=== PATIENT | female | born 1970 | race Caucasian/White ===

== ENCOUNTER 2019-07-23 06:00 | Outpatient (RCR) | payer MEDICARE, MEDICAID, SELFPAY | END 2019-08-20 00:01 | LOC: MPT 06:00 | PROVIDERS: Family Provider Nurse Practitioner; Visit Provider Nurse Practitioner | DX: G89.29 Other chronic pain (principal); M54.5 Low back pain | CPT/HCPCS: 97110; 97161 ==

== ENCOUNTER 2019-08-21 13:44 | Outpatient (RCR) | payer MEDICARE, MEDICAID, SELFPAY | END 2019-09-20 23:59 | disposition home or self-care (01) | LOC: MPT 13:44 | PROVIDERS: Visit Provider Physician Assistant | DX: M54.5 Low back pain (principal) ==

== ENCOUNTER → 2020-07-20 09:05 | Outpatient (BNVA) | payer MEDICARE, MEDICAID, SELFPAY | PROVIDERS: Family Provider Nurse Practitioner; PCP Physician Assistant Medical; Referring Provider Physician Assistant Medical; Visit Provider Anesthesiology Pain Medicine | DX: G89.29 Other chronic pain (principal); M51.16 Intervertebral disc disorders with radiculopathy, lumbar region; M47.816 Spondylosis without myelopathy or radiculopathy, lumbar region; M54.9 Dorsalgia, unspecified; M54.2 Cervicalgia; F17.210 Nicotine dependence, cigarettes, uncomplicated; Z90.49 Acquired absence of other specified parts of digestive tract; Z79.899 Other long term (current) drug therapy | CPT/HCPCS: 99204 ==

== ENCOUNTER 2020-08-06 06:00 | Outpatient (RCR) | payer MEDICARE, MEDICAID, SELFPAY | END 2020-08-20 23:59 | disposition home or self-care (01) | LOC: MPT 06:00 | PROVIDERS: PCP Physician Assistant Medical; Referring Provider Anesthesiology Pain Medicine; Visit Provider Anesthesiology Pain Medicine | DX: M54.5 Low back pain (principal); G89.29 Other chronic pain | CPT/HCPCS: 97110; 97161 ==

== ENCOUNTER 2021-07-26 13:28 | Inpatient (IN) | payer MEDICARE, MEDICAID, SELFPAY ==
[2021-07-26 13:35] VITALS: BP 134/80; PULSE 114; RESP 18; TEMP 37.1; O2SAT 94; BMI 32.4
[2021-07-26 14:08] LABS: Basophils # 0.1 10^3/uL (0.0-0.1); Basophils % 0.9 %; Eosinophils # 0.1 10^3/uL (0.0-0.8); Hematocrit 43.1 % (37.0-47.0); Lymphocytes # 3.1 10^3/uL (0.8-4.8); Lymphocytes % 22.2 %; Mean Corpuscular HGB Conc 32.5 g/dL (30.0-36.0); Mean Corpuscular Hemoglobin 27.9 pg (28.0-34.0); Mean Corpuscular Volume 85.9 fl (81-99); Mean Platelet Volume 10.3 fL (7.4-10.4); Monocytes # 0.6 10^3/uL (0.2-0.9); Monocytes % 4.2 %; Neutrophils % 71.2 %; Nucleated Red Blood Cells % 0 %; Platelet Count 431 10^3/cmm (130-400); Red Blood Count 5.02 10^6/uL (4.1-5.3); Red Cell Distribution Width 13.5 % (12.1-15.1); White Blood Count 13.8 10^3/uL (4.0-10.0)
[2021-07-26 14:48] VITALS: BP 139/67; PULSE 129; RESP 22; TEMP 37; O2SAT 95
[2021-07-26 14:50] LABS: Anion Gap 23.4 (5-19); Blood Urea Nitrogen 19 mg/dL (6-20); Calcium 9.6 mg/dL (8.5-10.5); Carbon Dioxide 19 mmol/L (22-29); Chloride 102 mmol/L (98-107); Glomerular Filtration Rate 88.9 mL/min (90-130); Glucose 129 mg/dL (65-115); Osmolality Calculated 296 mOsm/kg (285-295); Potassium 3.4 mmol/L (3.5-5.1); Sodium 141 mmol/L (136-145)
[2021-07-26 14:53] LABS: Acetaminophen < 5.0 ug/mL (10-30); Salicylate < 0.3 mg/dL (3-10)
--- NOTE | 2021-07-26 14:54 | ED_ITS ---
HPI - General Adult General: Chief complaint: Anxiety Stated complaint: DEPRESSION/PANIC ATTACK Time Seen by Provider: 07/26/21 13:30 History of Present Illness: HPI narrative: Patient is a 51-year-old female with a history of polysubstance use presenting to the emergency room with anxiety restless leg jerking and hyperactivity after using meth. Patient tells me that she smoked meth 2 days ago and since then has not been feeling right. Patient tell me that she feels anxious. Patient also tells me that she has a history of depression and feels sad. Patient denies any active suicidal ideation or homicidal ideation. Denies any active hallucination. Onset: 2 days ago Duration:2 days Location:home Severity:moderate Review of Systems Narrative: Constitutional: No fever, no chills. HEENT: No vision changes CV: No chest pain, no palpitations PULM: no cough, no dyspnea. GI: No abdominal pain, no N/V/D. : No dysuria MSKEL: No muscle pain SKIN: No new rashes, no lesions. NEURO: No headache, no focal weakness. HEME: No visible bruises PSYCH: Agitated mood PFSH ED PFSH: Medical History (Updated 07/08/21 @ 16:24 by Sarah Lazo) Psychiatric care Family History (Updated 10/07/19 @ 08:18 by Charo Ozuna RN) Grandmother Diabetes MATERNAL Cancer BREAST Social History (Updated 07/20/20 @ 09:59 by Mary Bates LPN) Smoking and tobacco status: current every day smoker cigarettes Packs smoked per day: 0.5 [ Other cigarette details: SINCE THE AGE OF 19 ] Alcohol intake: never Lives independently: Yes History of recent travel: No Physical Exam Narrative: EXAM NARRATIVE: Head: Atraumatic Eyes: PERRL, conjunctiva without injection ENT: Mucous membrane moist NECK: Supple, ROM intact LUNGS: LCTAB, no crackles/rhonchi CV: Sinus tachycardia ABDOMEN: Soft, nontender in all quadrants EXTREMITY: Normal ROM SKIN: No rash or erythema NEURO: Awake and alert, no focal motor deficits PSYCH: Normal mood and affect Course Vital Signs: Vital signs: Vital Signs Temperature 98.6 F 07/26/21 14:48 Pulse Rate 129 H 07/26/21 14:48 Respiratory Rate 22 H 07/26/21 14:48 Blood Pressure 139/67 07/26/21 14:48 Pulse Oximetry 95 07/26/21 14:48 MDM - General Adult MDM Narrative: Medical decision making narrative: 51F presents emergency room with agitation, suicidal thoughts. On exam, patient appears to be agitated. +Tachycardia on arrival. I discussed case with Dr. Gray who agrees with admitting patient for observation given depressive symptoms and inability to care for self. Disposition: Admission Lab Data: Labs: Lab Results 07/26/21 07/26/21 14:02 14:02 WBC 13.8 10^3/uL H 10 ^3/uL (4.0-10.0) RBC 5.02 10^6/uL 10^6 /uL (4.1-5.3) Hgb 14.0 g/dL g/dL (11.5-15.3) Hct 43.1 % % (37.0-47.0) MCV 85.9 fl fl (81-99) MCH 27.9 pg L pg (28.0-34.0) MCHC 32.5 g/dL g/dL (30.0-36.0) RDW 13.5 % % (12.1-15.1) Plt Count 431 10^3/cmm H 10 ^3/cmm (130-400) MPV 10.3 fL fL (7.4-10.4) Neut % (Auto) 71.2 % % Lymph % (Auto) 22.2 % % Valley % (Auto) 4.2 % % Eos % (Auto) 1.0 % % Baso % (Auto) 0.9 % % Neut # (Auto) 9.80 10^3/uL H 10 ^3/uL (1.8-7.7) Lymph # (Auto) 3.1 10^3/uL 10^3/ uL (0.8-4.8) Valley # (Auto) 0.6 10^3/uL 10^3/ uL (0.2-0.9) Eos # (Auto) 0.1 10^3/uL 10^3/ uL (0.0-0.8) Baso # (Auto) 0.1 10^3/uL 10^3/ uL (0.0-0.1) Nucleated RBC % (a uto) 0 % % Nucleated RBCs # 0.0 /100WBC /100W BC Sodium 141 mmol/L mmol/L (136-145) Potassium 3.4 mmol/L L mmol /L (3.5-5.1) Chloride 102 mmol/L mmol/L (98-107) Carbon Dioxide 19 mmol/L L mmol/ L (22-29) Anion Gap 23.4 H (5-19) BUN 19 mg/dL mg/dL (6-20) Creatinine 0.7 mg/dL mg/dL (0.5-0.9) GFR Calculation 88.9 mL/min L mL/ min (90-130) Glucose 129 mg/dL H mg/dL (65-115) Calculated Osmolal ity 296 mOsm/kg H mOs m/kg (285-295) Calcium 9.6 mg/dL mg/dL (8.5-10.5) Salicylates < 0.3 mg/dL L mg/ dL (3-10) Acetaminophen < 5.0 ug/mL L ug/ mL (10-30) Discharge Plan Discharge Prescriptions: No Action omeprazole 20 mg capsule,delayed release(DR/EC) 20 mg PO DAILY RF: 0 fluticasone propion-salmeterol [Advair Diskus] 100-50 mcg/dose blister with device 1 puff INHALATION BID RF: 0 ibuprofen [IBU] 800 mg tablet 800 mg PO Q8H PRNRF: 0 montelukast [Singulair] 10 mg tablet 10 mg PO DAILY RF: 0 albuterol sulfate [ProAir HFA] 90 mcg/actuation HFA aerosol inhaler 2 puff INHALATION Q6H PRNRF: 0 nabumetone 500 mg tablet 1,000 mg PO BID RF: 0 fenofibrate nanocrystallized 145 mg tablet 145 mg PO DAILY RF: 0 olanzapine 5 mg tablet 0.5 mg PO .COMPLEX RF: 0 potassium chloride 10 mEq tablet extended release 10 meq PO DAILY RF: 0 cholecalciferol (vitamin D3) 1,250 mcg (50,000 unit) capsule PO RF: 0 metformin 500 mg tablet 500 mg PO BID RF: 0 Coding Level of Care Code ED Mechanic Sound Technician for Chg Jenni
[2021-07-26 16:45] LABS: Protein Urine 1+ (Negative); Specific Gravity, Urine 1.025 (1.005-1.030); Urine Appearance Cloudy (CLEAR); Urine Color Yellow (Yellow); pH Urine 5 (5-7)
[2021-07-26 16:46] LABS: Add Urine Microscopic? YES; Bilirubin Urine 1+ (Negative); Blood Urine 2+ (Negative); Glucose Urine UA Norm (Normal); Ketones Urine 1+ (Negative); Leukocyte Esterase Urine 1+ (Negative); Nitrate Urine Positive (Negative); Urobilinogen Urine 4 mg/dL (Negative)
[2021-07-26 16:47] LABS: Bacteria Urine 4+ /hpf; Mucus Urine 1+ /hpf; Transitional Epi Cells Urine 0-4 /hpf
[2021-07-26 16:48] LABS: Add Urine Culture? Yes; Amorphous Sediment Urine 2+ /hpf
[2021-07-26 16:49] LABS: Amphetamines Screen Urine Positive (Negative); Barbiturates Screen Urine Negative (Negative); Benzodiazepines Screen Urine Negative (Negative); Cocaine Screen Urine Negative (Negative); Opiate Screen Urine Negative (Negative); PCP Screen Urine Negative (Negative); THC Screen Urine Positive (Negative)
--- NOTE | 2021-07-26 16:50 | PC.NURSE ---
Report called to floor, given to DONNA Bradford. Suzette will call back when the room is clean
[2021-07-26 17:30] VITALS: BP 133/84; PULSE 102; RESP 18; TEMP 37; O2SAT 96
[2021-07-26] MEDS: nicotine 2 mg Gum BUCCAL (18:36)
--- NOTE | 2021-07-26 20:03 | PC.NURSE ---
Admission- Patient is a 51-year-old female with a history of polysubstance use presenting to the emergency room with anxiety restless leg jerking and hyperactivity after using meth. Patient tells me that she smoked meth 2 days ago and since then has not been feeling right. Patient tell me that she feels anxious. Patient also tells me that she has a history of depression and feels sad. Patient denies any active suicidal ideation or homicidal ideation. Denies any active hallucination. Upon arrival to unit has hyperactive movements but is calm and cooperative. Is tearful throughout intake. Denies current SI but does endorse being overwhelmed and just wanting to be . States that she got hooked on meth 6 months ago and realized that she needs help.
[2021-07-26] MEDS: acetaminophen 325 mg Tablet 650 MG PO (20:16)
[2021-07-26] MEDS: hyDROXYzine 25 mg Capsule 50 MG PO (20:17)
[2021-07-26] MEDS: trazodone 50 mg Tablet PO (21:26)
[2021-07-26] MEDS: OLANZapine 5 mg ODT PO (21:26)
[2021-07-26 21:41] VITALS: RESP 20
[2021-07-27 06:00] VITALS: RESP 16
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
[2021-07-27 14:00] VITALS: BP 133/84; PULSE 102; RESP 16; TEMP 37; O2SAT 96
[2021-07-27 21:20] VITALS: BP 129/80; PULSE 68; RESP 18; O2SAT 96
[2021-07-28 06:00] VITALS: PULSE 104; RESP 16; O2SAT 96
[2021-07-28] MEDS: acetaminophen 325 mg Tablet 650 MG PO (06:38)
[2021-07-28 14:00] VITALS: RESP 16
[2021-07-28] MEDS: OLANZapine 5 mg ODT PO (17:44)
[2021-07-28] MEDS: nicotine 2 mg Gum BUCCAL (17:44)
--- NOTE | 2021-07-28 19:57 | P.NPUPN_ITS ---
Subjective NPU Subjective: Interval history: Patient presents today reporting that she is feeling a little better. We discussed her continuing the medicine that she has been on and she agreed to make every attempt to meet here at this time and to plan to work with the treatment team about discharge planning. She reports that her drug use is an issue that she needs to confront and we discussed how that could be addressed in follow-up. Mental Status Exam MSE Comments: This is an obese, white female, with absent dentition, with limited grooming, and eye contact. No abnormal movements except for mild psychomotor retardation. Cooperative with exam in no acute distress. Speech was normal rate and volume. Mood described as a little better; affect seemed congruent. Thought process, organized. Thought content: she endorses paranoia, but no delusions were noted or noted. Patient denied any suicidal or homicidal ideation. Attention, concentration, and memory appear intact but were not formally tested. She is alert and oriented times three. Insight and judgment are limited, impulse control impaired. Vitals/I&O/Wt Last Vital Signs Temp 98.8 F 07/28/21 22:00 Pulse 64 07/28/21 22:00 Resp 18 07/28/21 22:00 BP 102/66 07/28/21 22:00 Pulse Ox 95 07/28/21 22:00 Data NPU : 07/26/21 14:02 07/26/21 14:02 Micro: Microbiology 07/26/21 15:40 Urine Culture - Final Urine,Clean Catch Escherichia coli Microbiology 07/26/21 15:40 Urine,Clean Catch Urine Culture - Final Escherichia coli A&P Additional A&P Information This is a 51-year-old, white female, with major depressive disorder, recurrent, and significant addiction history, most currently with methamphetamine with active addiction, recent psychosocial stressors including her children being removed from the home, who presented with depression and anxiety, and wanting to get help getting connected with treatment options. RECOMMENDATION AND PLAN: 1. Continue current medication. 2. Encourage individual, group, and milieu therapy. 3. Continue q-15 minute checks for safety. 4. Encourage sober living treatment after discharge, at the highest level of care, to which she is willing to commit. Involuntary Hold Information 96 Hour Hold: 96 Hour Involuntary Admission: No Attestations NPU Medical Necessity Statement*: Inpatient hospitalization is medically necessary and the clinically appropriate intervention, at this time. We will monitor medications and make changes as indicated. Likely length of stay is 2-4 days. Coding Level of Care Code Acute Harvesting Manager for Jacqueline Arteaga
[2021-07-28] MEDS: trazodone 50 mg Tablet PO (21:08)
[2021-07-28] MEDS: hyDROXYzine 25 mg Capsule 50 MG PO (21:08)
[2021-07-28 22:00] VITALS: BP 102/66; PULSE 64; RESP 18; TEMP 37.1; O2SAT 95
[2021-07-29 06:18] VITALS: BP 91/64; PULSE 73; RESP 18; TEMP 36.8; O2SAT 95
[2021-07-29] MEDS: fluoxetine 20 mg Capsule 40 MG PO (11:05)
[2021-07-29 14:00] VITALS: BP 102/68; PULSE 66; RESP 16; TEMP 36.6; O2SAT 95
--- NOTE | 2021-07-29 14:13 | PC.SOCIAL ---
IMM Update Discussed medicare rights with patient. Verbalized understanding. Provided patient with a copy and placed initialed, timed, dated copy in patient's chart.
--- NOTE | 2021-07-29 16:51 | P.NPUPN_ITS ---
Subjective NPU Subjective: Interval history: Patient presents today reporting that she is feeling like she will be able to manage her recovery without going to a rehab initially. He reports that he needs to connect with her children and explained to them was going on with her. She reports that she feels the medications are helpful and she knows she needs to continue them to do well. We discussed likely discharge in the next 48 hours. Mental Status Exam MSE Comments: This is an obese, white female, with absent dentition, with limited grooming, and eye contact. No abnormal movements except for mild psychomotor retardation. Cooperative with exam in no acute distress. Speech was normal rate and volume. Mood described as a little better; affect seemed congruent. Thought process, organized. Thought content: she endorses paranoia, but no delusions were noted or noted. Patient denied any suicidal or homicidal ideation. Attention, concentration, and memory appear intact but were not formally tested. She is alert and oriented times three. Insight and judgment are limited, impulse control impaired. Vitals/I&O/Wt Last Vital Signs Temp 97.8 F 07/29/21 14:00 Pulse 66 07/29/21 14:00 Resp 16 07/29/21 14:00 BP 102/68 07/29/21 14:00 Pulse Ox 95 07/29/21 14:00 Data NPU : 07/26/21 14:02 07/26/21 14:02 A&P Additional A&P Information This is a 51-year-old, white female, with major depressive disorder, recurrent, and significant addiction history, most currently with methamphetamine with active addiction, recent psychosocial stressors including her children being removed from the home, who presented with depression and anxiety, and wanting to get help getting connected with treatment options. RECOMMENDATION AND PLAN: 1. Continue current medication. 2. Encourage individual, group, and milieu therapy. 3. Continue q-15 minute checks for safety. 4. Encourage sober living treatment after discharge, at the highest level of care, to which she is willing to commit. Involuntary Hold Information 96 Hour Hold: 96 Hour Involuntary Admission: No Attestations NPU Medical Necessity Statement*: Inpatient hospitalization is medically necessary and the clinically appropriate intervention, at this time. We will monitor medications and make changes as indicated. Likely length of stay is 1-3 days. Coding Level of Care Code Acute [employer] Gold Attendant for Jacqueline Arteaga
[2021-07-29 22:00] VITALS: PULSE 69; RESP 18; TEMP 36.8; O2SAT 97
[2021-07-30 06:00] VITALS: BP 91/63; PULSE 86; RESP 16; TEMP 36.6; O2SAT 100
[2021-07-30] MEDS: fluoxetine 20 mg Capsule 40 MG PO (09:13)
[2021-07-30] MEDS: nicotine 2 mg Gum BUCCAL (09:13)
[2021-07-30] MEDS: acetaminophen 325 mg Tablet 650 MG PO (09:15)
[2021-07-30] MEDS: OLANZapine 5 mg ODT PO (09:16)
[2021-07-30] MEDS: nitrofurantoin SR (BID) 100 mg Capsule PO (12:53)
--- NOTE | 2021-07-30 13:17 | DCPLANNER ---
IMM completed with pt on 07/30/21 @ 1311 hours. Pt was given a copy of rights and stated she understood her rights.
[2021-07-30 13:57] VITALS: BP 103/64; PULSE 68; RESP 16; TEMP 36.8; O2SAT 97
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
[2021-07-30 15:05] VITALS: BP 103/64; PULSE 68; RESP 16; TEMP 36.8; O2SAT 97
== END 2021-07-30 16:22 | disposition home or self-care (01) | DRG 885 ==
LOC: ER 15:00 → NP 16:18
PROVIDERS: Admitting Provider Psychiatry & Neurology Psychiatry; Emergency Provider Emergency Medicine; PCP Physician Assistant Medical; Visit Provider Psychiatry & Neurology Psychiatry
DX: F33.9 Major depressive disorder, recurrent, unspecified (principal); F15.20 Other stimulant dependence, uncomplicated; F41.9 Anxiety disorder, unspecified; F17.210 Nicotine dependence, cigarettes, uncomplicated; F12.90 Cannabis use, unspecified, uncomplicated; J45.909 Unspecified asthma, uncomplicated; E66.9 Obesity, unspecified; Z62.810 Personal history of physical and sexual abuse in childhood; Z62.811 Personal history of psychological abuse in childhood; Z65.3 Problems related to other legal circumstances; Z68.32 Body mass index [BMI] 32.0-32.9, adult; Z81.4 Family history of other substance abuse and dependence; Z81.8 Family history of other mental and behavioral disorders
CPT/HCPCS: 80048; 80306; 80307; 81001; 81025; 85025; 87077; 87086; 87186; 97150; 97165; 99285; 99291

== ENCOUNTER → 2022-04-30 16:06 | Outpatient (BNVA) | payer MEDICARE, MEDICAID, SELFPAY | PROVIDERS: PCP Physician Assistant Medical; Visit Provider Emergency Medicine | DX: Z20.822 Contact with and (suspected) exposure to COVID-19 (principal); J45.41 Moderate persistent asthma with (acute) exacerbation; F17.200 Nicotine dependence, unspecified, uncomplicated | CPT/HCPCS: 87426 ==

== ENCOUNTER → 2022-05-19 12:30 | Outpatient (BNVA) | payer MEDICARE, MEDICAID, SELFPAY | PROVIDERS: PCP Physician Assistant Medical; Visit Provider Registered Nurse | DX: Z79.899 Other long term (current) drug therapy (principal) | CPT/HCPCS: 80053; 80061; 82306; 83036; 84443; 85025 ==

== ENCOUNTER 2023-09-22 05:45 | Inpatient (IN) | payer MEDICARE, MEDICAID, SELFPAY ==
[2023-09-22 05:50] VITALS: BP 129/93; PULSE 112; RESP 20; O2SAT 98
--- NOTE | 2023-09-22 05:52 | XRR_ITS ---
PROCEDURE INFORMATION: Exam: XR Chest Exam date and time: 09/22/2023 6:22 AM Age: 53 years old Clinical indication: Other: Tachycardia TECHNIQUE: Imaging protocol: Radiologic exam of the chest. Views: 1 view. COMPARISON: No relevant prior studies available. FINDINGS: Lungs: Unremarkable. No consolidation. Pleural spaces: Unremarkable. No pleural effusion. No pneumothorax. Heart/Mediastinum: Unremarkable. No cardiomegaly. Bones/joints: Unremarkable. XR/XR chest 1V portable [id number] IMPRESSION: No acute findings.
[2023-09-22 06:00] VITALS: TEMP 36.9
[2023-09-22 06:02] LABS: Basophils # 0.1 10^3/uL (0.0-0.1); Basophils % 0.8 %; Eosinophils # 0.1 10^3/uL (0.0-0.8); Eosinophils % 0.8 %; Hematocrit 40.7 % (36-47); Lymphocytes # 3.7 10^3/uL (0.8-4.8); Lymphocytes % 23.2 %; Mean Corpuscular HGB Conc 33.9 g/dL (30-55); Mean Corpuscular Hemoglobin 28.3 pg (27-33); Mean Corpuscular Volume 83.6 fl (85-98); Mean Platelet Volume 10.8 fL (7.4-10.4); Monocytes # 1.1 10^3/uL (0.2-0.9); Neutrophils % 67.7 %; Nucleated Red Blood Cells % 0 %; Platelet Count 307 10^3/cmm (157-399); Red Blood Count 4.87 10^6/uL (3.85-5.65); Red Cell Distribution Width 13.2 % (12.1-15.1); White Blood Count 15.93 10^3/uL (3.29-11.43)
--- NOTE | 2023-09-22 06:14 | ED.C_ITS ---
HPI - Psych 2 General: Chief Complaint: Psychiatric Symptoms Stated Complaint: SI/ Meth & THC Time Seen by Provider: 09/22/23 05:53 Source: patient Mode of arrival: EMS History of Present Illness: 53-year-old female presents emergency ro om via EMS patient is on a influence of methamphetamines confirmed same in discussion. She states she has been using last couple days but does not quantify. She tells me she is trying to get clean but has not been able to because she hangs around people who use drugs. She is very upset stating she wants to kill herself because of her frustration with her inability to stop using. Patient is extremely anxious with typical choreiform movements. MD complaint: suicidal ideation and feels depressed Onset (ago): unknown Exacerbating factors: drug use Context: recent drug abuse Associated psychiatric symptoms: depression and suicidal ideation Associated symptoms: Reports depression and suicidal ideation Treatments prior to arrival: none If self harm: admits thoughts of self harm Review of Systems 2 Const: Denies: fever(s) or chills Card: Denies: chest pain Resp: Denies: dyspnea GI: Denies: abdominal pain : Denies: dysuria, urinary frequency or urinary urgency Musc: Denies: neck pain or back pain Psych: Reports: anxiety, depression, sleeping less, irritability, paranoia and suicidal ideation PFSH ED 2 PFSH: Medical History Depression Generalized anxiety disorder Methamphetamine use disorder, severe, in sustained remission Alcohol use disorder, severe, in sustained remission Smoking Asthma Psychiatric care Family History Grandmother Diabetes MATERNAL Cancer BREAST Social History Smoking and tobacco/nicotine status: current every day tobacco/nicotine user cigarettes Packs smoked per day: 0.5 [ Other cigarette details: SINCE THE AGE OF 19] Alcohol intake: never Substance/Drug Use: never Lives independently: Yes Physical Exam 2 Const: GENERAL APPEARANCE: cooperative ORIENTATION/CONSCIOUSNESS: Yes awake HENMT: COMMON NORMALS: normocephalic, atraumatic and hearing grossly normal bilaterally HEAD & SCALP: normocephalic and atraumatic Resp: COMMON NORMALS: normal respiratory effort, No retractions, No use of accessory muscles and clear to auscultation bilaterally AUSCULTATION: clear to auscultation bilaterally Cardio: COMMON NORMALS: regular rate, regular rhythm and No murmurs present (Cardio) RATE: regular rate RHYTHM: regular rhythm Extremity: COMMON NORMALS: normal to inspection, capillary refill normal, no clubbing, cyanosis or edema, no calf tenderness and no pedal edema Course 2 Vital Signs: Vital signs: Vital Signs Temperature 98.5 F 09/22/23 06:00 Pulse Rate 112 H 09/22/23 05:50 Respiratory Rate 20 H 09/22/23 05:50 Blood Pressure 129/93 09/22/23 05:50 Pulse Oximetry 98 09/22/23 05:50 MDM - Psych Medical Decision Making Suicidal ideation depression along with acute methamphetamine intoxication. We did give her Ativan which helped somewhat. Initially we did not have any beds available for admission for suicidal ideation however discharges occurred we had not been able to find a bed for her to be transferred to [place] instead opted to admit to our unit since a bed had opened up in the interim. Patient was given Ativan in the emergency room for agitation. Medical Records I reviewed the patient's medical records. Lab Data I reviewed the patient's lab results. 09/22/23 05:55 09/22/23 05:55 Radiology Impressions Chest X-Ray 09/22/23 05:52 IMPRESSION: No acute findings. Laboratory Results WBC 15.93 10^3/uL (3.29-11.43) H 09/22/23 05:55 RBC 4.87 10^6/uL (3.85-5.65) 09/22/23 05:55 Hgb 13.80 g/dL (11.27-16.99) 09/22/23 05:55 Hct 40.7 % (36-47) 09/22/23 05:55 MCV 83.6 fl (85-98) L 09/22/23 05:55 MCH 28.3 pg (27-33) 09/22/23 05:55 MCHC 33.9 g/dL (30-55) 09/22/23 05:55 RDW 13.2 % (12.1-15.1) 09/22/23 05:55 Plt Count 307 10^3/cmm (157-399) 09/22/23 05:55 MPV 10.8 fL (7.4-10.4) H 09/22/23 05:55 Neut % (Auto) 67.7 % 09/22/23 05:55 Lymph % (Auto) 23.2 % 09/22/23 05:55 Barton % (Auto) 7.0 % 09/22/23 05:55 Eos % (Auto) 0.8 % 09/22/23 05:55 Baso % (Auto) 0.8 % 09/22/23 05:55 Neut # (Auto) 10.80 10^3/uL (1.8-7.7) H 09/22/23 05:55 Lymph # (Auto) 3.7 10^3/uL (0.8-4.8) 09/22/23 05:55 Barton # (Auto) 1.1 10^3/uL (0.2-0.9) H 09/22/23 05:55 Eos # (Auto) 0.1 10^3/uL (0.0-0.8) 09/22/23 05:55 Baso # (Auto) 0.1 10^3/uL (0.0-0.1) 09/22/23 05:55 Nucleated RBC % (auto) 0 % 09/22/23 05:55 Nucleated RBCs # 0.0 /100WBC 09/22/23 05:55 Sodium 143 mmol/L (136-145) 09/22/23 05:55 Potassium 3.1 mmol/L (3.5-5.1) L 09/22/23 05:55 Chloride 105 mmol/L (98-107) 09/22/23 05:55 Carbon Dioxide 23 mmol/L (22-29) 09/22/23 05:55 Anion Gap 18.1 (5-19) 09/22/23 05:55 BUN 20 mg/dL (6-20) 09/22/23 05:55 Creatinine 0.9 mg/dL (0.5-0.9) 09/22/23 05:55 GFR Calculation 66.0 mL/min (90-130) L 09/22/23 05:55 Glucose 93 mg/dL (65-115) 09/22/23 05:55 Calculated Osmolality 298 mOsm/kg (285-295) H 09/22/23 05:55 Calcium 10.7 mg/dL (8.5-10.5) H 09/22/23 05:55 Total Bilirubin 0.3 mg/dL (0.15-1.2) 09/22/23 05:55 AST 14 U/L (0-32) 09/22/23 05:55 ALT 12 U/L (0-33) 09/22/23 05:55 Alkaline Phosphatase 98 U/L (35-105) 09/22/23 05:55 Total Protein 7.1 g/dL (6.6-8.7) 09/22/23 05:55 Albumin 4.1 g/dL (3.5-5.2) 09/22/23 05:55 Globulin 3.0 g/dL (1.3-4.6) 09/22/23 05:55 HCG, Qual Negative (Negative) 09/22/23 12:47 Urine Color Dark yellow (Yellow) 09/22/23 12:47 Urine Appearance Hazy (CLEAR) A 09/22/23 12:47 Urine pH 7 (5-7) 09/22/23 12:47 Ur Specific [place] 1.015 (1.005-1.030) 09/22/23 12:47 Urine Protein Trace (Negative) 09/22/23 12:47 Urine Glucose (UA) Norm (Normal) 09/22/23 12:47 Urine Ketones 1+ (Negative) H 09/22/23 12:47 Urine Blood Neg (Negative) 09/22/23 12:47 Urine Nitrate Negative (Negative) 09/22/23 12:47 Urine Bilirubin 1+ (Negative) H 09/22/23 12:47 Urine Urobilinogen 4 mg/dL (Negative) H 09/22/23 12:47 Ur Leukocyte Esterase Negative (Negative) 09/22/23 12:47 Urine RBC 0-4 /hpf (0-2) H 09/22/23 12:47 Urine WBC None /hpf (0-5) 09/22/23 12:47 Ur Squamous Epith Cells 0-4 /hpf (0-5) H 09/22/23 12:47 Calcium Oxalate Crystal 0-4 /hpf H 09/22/23 12:47 Amorphous Sediment Not Reportable 09/22/23 12:47 Urine Bacteria Trace /hpf (NONE) 09/22/23 12:47 Urine Mucus 1+ /hpf 09/22/23 12:47 Salicylates < 0.3 mg/dL (3-10) L 09/22/23 05:55 Urine Opiates Screen Negative ng/mL (Negative) 09/22/23 12:47 Acetaminophen < 5.0 ug/mL (10-30) L 09/22/23 05:55 Ur Barbiturates Screen Negative ng/mL (Negative) 09/22/23 12:47 Ur Phencyclidine Scrn Negative ng/mL (Negative) 09/22/23 12:47 Ur Amphetamines Screen Positive ng/mL (Negative) H 09/22/23 12:47 U Benzodiazepines Scrn Positive ng/mL (Negative) H 09/22/23 12:47 Urine Cocaine Screen Negative ng/mL (Negative) 09/22/23 12:47 U Marijuana (THC) Screen Positive ng/mL (Negative) H 09/22/23 12:47 Ethyl Alcohol < 10 mg/dL (0-10) 09/22/23 05:55 All radiology interpretation(s) finalized by discharge Discharge Plan Discharge Patient Disposition: Admitted As Inpatient Admit Provider: Rosales Gray Clinical Impression: Suicidal ideation, Methamphetamine abuse Condition: Stable Coding Level of Care Code ED Tree Pruner for Jacqueline Arteaga
[2023-09-22 06:28] LABS: Alanine Aminotransferase 12 U/L (0-33); Albumin Level 4.1 g/dL (3.5-5.2); Alkaline Phosphatase 98 U/L (35-105); Anion Gap 18.1 (5-19); Aspartate Amino Transferase 14 U/L (0-32); Blood Urea Nitrogen 20 mg/dL (6-20); Calcium 10.7 mg/dL (8.5-10.5); Carbon Dioxide 23 mmol/L (22-29); Chloride 105 mmol/L (98-107); Glucose 93 mg/dL (65-115); Osmolality Calculated 298 mOsm/kg (285-295); Potassium 3.1 mmol/L (3.5-5.1); Sodium 143 mmol/L (136-145); Total Bilirubin 0.3 mg/dL (0.15-1.2); Total Protein 7.1 g/dL (6.6-8.7)
[2023-09-22 06:30] LABS: Acetaminophen < 5.0 ug/mL (10-30); Alcohol Level < 10 mg/dL (0-10); Salicylate < 0.3 mg/dL (3-10)
--- NOTE | 2023-09-22 07:24 | PC.PHAR ---
WAITING ON PTS' PHARMACY TO OPEN FOR MEDICATION VERIFICATION. PT ALTERED AND UNABLE TO APPROACH. 09/22/23
--- NOTE | 2023-09-22 08:28 | PC.PHAR ---
PER MELANIA AT [facility] [place] SHAD-ALL MEDICATIONS VERIFIED WITH CURRENT DOSAGE AND LAST FILL DATES. 09/22/23
--- NOTE | 2023-09-22 12:51 | PC.NURSE ---
RN into room at 1240 to obtain EKG and other testing. EKG unobtainable again at this time. notified.
[2023-09-22] MEDS: LORazepam 2 mg Tablet PO (13:05)
[2023-09-22 13:06] LABS: Amphetamines Screen Urine Positive (Negative); Barbiturates Screen Urine Negative (Negative); Benzodiazepines Screen Urine Positive (Negative); Cocaine Screen Urine Negative (Negative); Opiate Screen Urine Negative (Negative); PCP Screen Urine Negative (Negative); THC Screen Urine Positive (Negative)
[2023-09-22 13:12] LABS: Bilirubin Urine 1+ (Negative); Blood Urine Neg (Negative); Glucose Urine UA Norm (Normal); Ketones Urine 1+ (Negative); Nitrate Urine Negative (Negative); Protein Urine Trace (Negative); Specific Gravity, Urine 1.015 (1.005-1.030); Urine Appearance Hazy (CLEAR); Urine Color Dark Yellow (Yellow); pH Urine 7 (5-7)
[2023-09-22 13:13] LABS: Add Urine Microscopic? YES; Leukocyte Esterase Urine Negative (Negative); Urobilinogen Urine 4 mg/dL (Negative)
[2023-09-22 13:16] LABS: Add Urine Culture? No; Bacteria Urine TRACE /hpf; Calcium Oxalate Crystals Urine 0-4 /hpf; Mucus Urine 1+ /hpf; RBC Urine 0-4 /hpf (0-2); Squamous Epithelial Cell Urine 0-4 /hpf (0-5)
[2023-09-22 13:28] LABS: HCG Qualitative Urine. Negative (Negative)
[2023-09-22 16:17] LABS: Adenovirus Not Detected (NOT DETECT); Chlamydia Pneumoniae Not Detected (NOT DETECT); Coronavirus 229E,HKU1,NL63,OC4 Not Detected (NOT DETECT); Human Metapneumovirus Not Detected (NOT DETECT); Human Rhinovirus/Enterovirus Not Detected (NOT DETECT); Influenza A Not Detected (NOT DETECT); Influenza A H1 Not Detected (NOT DETECT); Influenza A H1-2009 Not Detected (NOT DETECT); Influenza A H3 Not Detected (NOT DETECT); Influenza B Not Detected (NOT DETECT); Mycoplasma Pneumoniae Not Detected (NOT DETECT); Parainfluenza Virus Type 1 Not Detected (NOT DETECT); Parainfluenza Virus Type 2 Not Detected (NOT DETECT); Parainfluenza Virus Type 3 Not Detected (NOT DETECT); Parainfluenza Virus Type 4 Not Detected (NOT DETECT); Respiratory Syncytial Virus A Not Detected (NOT DETECT); Respiratory Syncytial Virus B Not Detected (NOT DETECT); SARS-COV-2 Not Detected (NOT DETECT)
[2023-09-22 16:24] VITALS: BP 129/93; PULSE 112; RESP 20; TEMP 36.9; O2SAT 98
[2023-09-22 16:54] VITALS: BP 104/65; PULSE 104; RESP 16; TEMP 36.5; O2SAT 97
--- NOTE | 2023-09-22 18:31 | PC.NURSE ---
Patient arrived to unit too incoherent to perform any type of verbal assessment with her. She was unable to even understand the instructions to take her temperature. No skin issues noted.
[2023-09-22 20:42] VITALS: BP 91/59; PULSE 90; RESP 16; TEMP 36.8; O2SAT 97
--- NOTE | 2023-09-23 06:37 | PC.NURSE ---
Attempted to obtain the patients vitals. Patient stated no.
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
--- NOTE | 2023-09-23 10:56 | PC.NURSE ---
PT CURRENTLY DENIES SI/HI/AH/VH. PT CURRENTLY ENDORSES ANXIETY AND DEPRESSION RATING BOTH A 6/10 ON A 0-10 SCALE WHERE 0 IS NONE AND 10 IS THE WORST. PT WAS WILLING AND COOPERATIVE WITH ASSESSMENT. PT APPEARS RESTLESS BUT IS CURRENTLY DENIES NEED FOR PRN MEDICATIONS. PT CURRENT NEEDS ARE MET AT THIS TIME.
[2023-09-23] MEDS: hyDROXYzine 25 mg Capsule 50 MG PO (11:44)
[2023-09-23 14:00] VITALS: BP 99/65; PULSE 81; RESP 20; TEMP 36.9; O2SAT 94
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
[2023-09-23 20:22] VITALS: BP 101/63; PULSE 85; RESP 18; TEMP 37.2; O2SAT 96
--- NOTE | 2023-09-23 20:29 | PC.NURSE ---
IN BED RESTING AROUSES TO VOICE. DENIES SI/HI AND AVH AT THIS TIME. RATES ANXIETY /10 AND DEPRESSION /. REQUEST ANTI ANXIETY MEDICATION, NURSE ASSURED THAT SHE WILL PULL IT AND GIVE IT TO HER WITH NIGHT TIME MEDICATIONS. RATES PAIN IN BACK /10 TYLENOL WILL BE GIVEN ORDERED WHEN PT COMES UP TO NURSES STATION FOR MEDICATIONS. ALL QUESTIONS ANSWERED AND SUPPORT VOICED. PT IS NOTED TO HAVE A FLAT DEPRESSED AFFECT AND MOOD.
[2023-09-23] MEDS: quetiapine 100 mg Tablet PO (20:34)
[2023-09-23] MEDS: OLANZapine 5 mg ODT PO (20:34)
[2023-09-23] MEDS: acetaminophen 325 mg Tablet 650 MG PO (20:34)
[2023-09-23] MEDS: BuSPIRONE 10 mg Tablet 15 MG PO (20:35)
--- NOTE | 2023-09-24 05:47 | PC.NURSE ---
PT REPORTED INCREASED ANXIETY AT THE BEGINNING OF SHIFT AND WAS GIVEN ZYDIS 5 MG ORDERED FOR INCREASED ANXIETY AND RESTLESSNESS. PT HAS SLEPT APPROXIMATELY 8 HOURS THIS SHIFT. MEDICATIONS ARE DEEMED EFFECTIVE AT THIS TIME.
[2023-09-24 06:00] VITALS: BP 95/64; PULSE 62; RESP 16; O2SAT 94
[2023-09-24] MEDS: BuSPIRONE 10 mg Tablet 15 MG PO ×3 (08:54→20:23)
[2023-09-24] MEDS: quetiapine XR (24HR) 50 mg Tablet PO (08:54)
--- NOTE | 2023-09-24 09:39 | W.PM.NPUPNS ---
Subjective NPU Subjective: Patient presented today reporting that she is doing okay. She reports that the BuSpar and Seroquel have been helpful but she is still struggling with her withdrawal symptoms from the methamphetamine. She reports a desire to get reengaged in treatment. We discussed the treatment team returning tomorrow and her working with them to explore the options moving forward. She denied any side effects to the medication. Mental Status Exam MSE Comments: This is an overweight versus obese, white female in hospital scrubs with absent dentition, limited grooming, and eye contact. No abnormal movements except for psychomotor agitation with some writhing in bed with tweaking. . Cooperative with exam in moderate distress. Speech was normal rate and decreased volume. Mood described as depressed and irritable; affect seemed congruent. Thought process, organized. Thought content: she endorses paranoia, but no delusions were noted or noted. Patient denied any suicidal or homicidal ideation, she denied auditory or visual hallucinations.. Attention, concentration, and memory appear intact but were not formally tested. She is alert and oriented times three. Insight and judgment are limited, impulse control impaired. Vitals/I&O/Wt Last Vital Signs Temp 99.0 F 09/23/23 20:22 Pulse 62 09/24/23 06:00 Resp 16 09/24/23 06:00 BP 95/64 09/24/23 06:00 Pulse Ox 94 09/24/23 06:00 O2 Del Method Room Air 09/24/23 06:00 Weight last 48 hrs Weight 78.075 kg Data NPU 09/22/23 05:55 09/22/23 05:55 A&P Assessment and plan (1) Major depressive disorder, recurrent: (2) Parent-child relational problem: (3) Methamphetamine use disorder, severe, in sustained remission: (4) Generalized anxiety disorder: (5) Suicidal ideation: (6) Alcohol use disorder, severe, in sustained remission: (7) Withdrawal from methamphetamine: Plan This is a 53-year-old, white female, with major depressive disorder, recurrent, and significant addiction history, most recently with methamphetamine with active addiction, recent psychosocial stressors issues with her residence, who presented with depression and anxiety and methamphetamine withdrawal, wanting to reconnect with treatment. RECOMMENDATION AND PLAN: 1.continue BuSpar and restart Seroquel. 2.Encourage individual, group, and milieu therapy. 3.Continue q-15 minute checks for safety. 4.Encourage sober living treatment after discharge, at the highest level of care, to which she is willing to commit. Involuntary Hold Information 96 Hour Hold: 96 Hour Involuntary Admission: No Attestations NPU Medical Necessity Statement*: Inpatient hospitalization is medically necessary and the clinically appropriate intervention, at this time. We will monitor medications and make changes as indicated. Likely length of stay is 2-4 days. Coding Level of Care Code Acute Code for [facility] Fwd Diagnoses Major depressive disorder, recurrent F33.9 Parent-child relational problem Z62.820 Methamphetamine use disorder, severe, in sustained remission F15.21 Generalized anxiety disorder F41.1 Suicidal ideation R45.851 Alcohol use disorder, severe, in sustained remission F10.21 Withdrawal from methamphetamine F15.93
[2023-09-24 14:00] VITALS: BP 94/61; PULSE 73; RESP 20; TEMP 37.1; O2SAT 96
[2023-09-24 20:00] VITALS: BP 108/72; PULSE 78; RESP 16; TEMP 36.9; O2SAT 96
[2023-09-24] MEDS: quetiapine 100 mg Tablet PO (20:23)
[2023-09-24] MEDS: hyDROXYzine 25 mg Capsule 50 MG PO (20:23)
[2023-09-24] MEDS: acetaminophen 325 mg Tablet 650 MG PO (20:23)
--- NOTE | 2023-09-24 20:58 | PC.NURSE ---
RESTING IN BED AROUSES TO VOICE. PT NOTED TO HAVE FLAT AND DEPRESSED MOOD AND AFFECT. DENIES SI/HI AND AVH AT THIS TIME. REPORTS BACK PAIN 6/10 AND TYLENOL 650 MG WAS GIVEN ORDERED FOR PAIN. RATES ANXIETY 6/10 AND DEPRESSION 6/10. REQUESTS SLEEP MEDICATIONS AND ANTI-ANXIETY MEDS PRIOR TO BED. RN ADMINISTERED TRAZODONE 50 MG ORDERED FOR INSOMNIA AND VISTARIL 50 MG FOR INCREASED ANXIETY. PT THEN WENT BACK TO BED TO REST AND IS CURRENTLY RESTING WITH EYES CLOSED. ALL QUESTIONS WERE ANSWERED AND SUPPORT WAS VOICED.
--- NOTE | 2023-09-25 04:53 | PC.NURSE ---
PT WAS GIVEN TRAZODONE 50 MG AND VISTARIL 560 MG EARLIER IN THE SHIFT FOR INSOMNIA AND ANXIETY. MEDICATIONS DEEMED EFFECTIVE PT HAS SLEPT APPROXIMATELY 10 HOURS THIS SHIFT AND ANXIETY HAS DECREASED.
[2023-09-25 06:00] VITALS: BP 103/64; PULSE 54; RESP 16; TEMP 36.8; O2SAT 95
[2023-09-25] MEDS: BuSPIRONE 10 mg Tablet 15 MG PO ×3 (08:21→20:24)
[2023-09-25] MEDS: quetiapine XR (24HR) 50 mg Tablet PO (08:21)
--- NOTE | 2023-09-25 08:45 | P.NPUPN_ITS ---
Subjective NPU 2 Subjective: Patient presented today reporting that she is starting to feel little better. She reports that she has been working with the social work team and that they are identifying possible sober living options/rehabs. She reports that she is adjusting to the medication and feels that is helping. She denied any specific side effects to the medication. Mental Status Exam 2 MSE Comments: This is an overweight versus obese, white female in hospital scrubs with absent dentition, limited grooming, and eye contact. No abnormal movements except for mild psychomotor retardation. Cooperative with exam in mild distress. Speech was normal rate and decreased volume. Mood described as stressed but feeling a little better; affect seemed congruent. Thought process, organized. Thought content: she endorses diminishing paranoia, but no delusions were noted or noted. Patient denied any suicidal or homicidal ideation, she denied auditory or visual hallucinations.. Attention, concentration, and memory appear intact but were not formally tested. She is alert and oriented times three. Insight and judgment are limited, impulse control improving. Vitals/I&O/Wt Last Vital Signs Temp 98.3 F 09/25/23 06:00 Pulse 54 L 09/25/23 06:00 Resp 16 09/25/23 06:00 BP 103/64 09/25/23 06:00 Pulse Ox 95 09/25/23 06:00 O2 Del Method Room Air 09/25/23 06:00 Weight last 48 hrs Weight 78.075 kg Data NPU 09/22/23 05:55 09/22/23 05:55 A&P Assessment and plan (1) Major depressive disorder, recurrent: (2) Parent-child relational problem: (3) Methamphetamine use disorder, severe, in sustained remission: (4) Generalized anxiety disorder: (5) Suicidal ideation: (6) Alcohol use disorder, severe, in sustained remission: (7) Withdrawal from methamphetamine: Plan This is a 53-year-old, white female, with major depressive disorder, recurrent, and significant addiction history, most recently with methamphetamine with active addiction, recent psychosocial stressors issues with her residence, who presented with depression and anxiety and methamphetamine withdrawal, wanting to reconnect with treatment. RECOMMENDATION AND PLAN: 1.continue BuSpar and restart Seroquel. 2.Encourage individual, group, and milieu therapy. 3.Continue q-15 minute checks for safety. 4.Encourage sober living treatment after discharge, at the highest level of care, to which she is willing to commit. She reports working with social work for possible rehab placement. Involuntary Hold Information 2 96 Hour Hold: 96 Hour Involuntary Admission: No Attestations NPU 2 Medical Necessity Statement*: Inpatient hospitalization is medically necessary and the clinically appropriate intervention, at this time. We will monitor medications and make changes as indicated. Likely length of stay is 2-4 days. Coding Level of Care Code Acute Code for [facility] Fwd Diagnoses Major depressive disorder, recurrent F33.9 Parent-child relational problem Z62.820 Methamphetamine use disorder, severe, in sustained remission F15.21 Generalized anxiety disorder F41.1 Suicidal ideation R45.851 Alcohol use disorder, severe, in sustained remission F10.21 Withdrawal from methamphetamine F15.93
[2023-09-25 14:00] VITALS: BP 126/68; PULSE 84; RESP 16; TEMP 36.5; O2SAT 97
[2023-09-25] MEDS: quetiapine 100 mg Tablet PO (20:24)
[2023-09-25] MEDS: acetaminophen 325 mg Tablet 650 MG PO (20:24)
[2023-09-25] MEDS: ondansetron 4 MG Tablet PO (20:24)
[2023-09-25] MEDS: hyDROXYzine 25 mg Capsule 50 MG PO (20:24)
[2023-09-25 20:54] VITALS: BP 106/52; PULSE 75; RESP 18; TEMP 36.9; O2SAT 100
--- NOTE | 2023-09-25 21:14 | PC.NURSE ---
SITTING ON SIDE OF BED. PT IS NOTED TO HAVE A FLAT AFFECT WITH DEPRESSED MOOD. REPORTS PAIN 5/10 IN BACK WELL INDEGESTION AND NAUSEA. NEW ORDERS RECEIVED TO GIVE MAALOX 30 MLS PO Q4 HOURS PRN INDIGESTION. ZOFRAN 4 MG WAS GIVEN ORDERED FOR NAUSEA. TYLENOL 650 MG WAS GIVEN FOR BACK PAIN ORDERED. DENIES SI/HI AND AVH AT THIS TIME. RATES ANXIETY 5/10 AND DEPRESSION 3/10. REQUEST ANXIETY MEDS. PT WAS GIVEN VISTARIL 50 MG ORDERED FOR INCREASED ANXIETY. PT ENCOURAGED TO INTERACT WITH PEERS. PT CONTINUES TO REPORT SHE IS TIRED AND FEELS FATIGUED. PT REASSURED IT WAS FINE FOR HER TO REST. ALL QUESTIONS ANSWERED AND SUPPORT WAS VOICED.
[2023-09-26 06:00] VITALS: BP 106/67; PULSE 70; RESP 16; TEMP 36.8; O2SAT 95
[2023-09-26] MEDS: quetiapine XR (24HR) 50 mg Tablet PO (11:21)
[2023-09-26] MEDS: BuSPIRONE 10 mg Tablet 15 MG PO ×3 (11:21→20:18)
[2023-09-26 13:53] VITALS: BP 110/67; PULSE 101; RESP 13; TEMP 36.8; O2SAT 95
--- NOTE | 2023-09-26 19:07 | P.NPUPN_ITS ---
Subjective NPU 2 Subjective: Patient presented today reporting that she is feeling slightly better each day. She reports that she is continuing to have a commitment to the idea of going to rehab and that she filled out paperwork with the social work team today in an effort to make that happen. We discussed supporting her in that endeavor and that we would find out what the timeframe was to a bed date and then make decisions based on that as far as discharge. She denied any side effects to the medication. Mental Status Exam 2 MSE Comments: This is an overweight versus obese, white female in hospital scrubs with absent dentition, limited grooming, and eye contact. No abnormal movements except for mild psychomotor retardation. Cooperative with exam in mild distress. Speech was normal rate and decreased volume. Mood described as stressed but feeling a little better; affect seemed congruent. Thought process, organized. Thought content: There were no delusions reported or noted. Patient denied any suicidal or homicidal ideation, she denied auditory or visual hallucinations.. Attention, concentration, and memory appear intact but were not formally tested. She is alert and oriented times three. Insight and judgment are limited, impulse control improving. Vitals/I&O/Wt Last Vital Signs Temp 98.2 F 09/26/23 13:53 Pulse 101 H 09/26/23 13:53 Resp 13 09/26/23 13:53 BP 110/67 09/26/23 13:53 Pulse Ox 95 09/26/23 13:53 O2 Del Method Room Air 09/26/23 06:00 Data NPU 09/22/23 05:55 09/22/23 05:55 A&P Assessment and plan (1) Major depressive disorder, recurrent: (2) Parent-child relational problem: (3) Methamphetamine use disorder, severe, in sustained remission: (4) Generalized anxiety disorder: (5) Suicidal ideation: (6) Alcohol use disorder, severe, in sustained remission: (7) Withdrawal from methamphetamine: Plan This is a 53-year-old, white female, with major depressive disorder, recurrent, and significant addiction history, most recently with methamphetamine with active addiction, recent psychosocial stressors issues with her residence, who presented with depression and anxiety and methamphetamine withdrawal, wanting to reconnect with treatment. RECOMMENDATION AND PLAN: 1.continue BuSpar and restarted Seroquel. 2.Encourage individual, group, and milieu therapy. 3.Continue q-15 minute checks for safety. 4.Encourage sober living treatment after discharge, at the highest level of care, to which she is willing to commit. She reports working with social work for possible rehab placement. Involuntary Hold Information 2 96 Hour Hold: 96 Hour Involuntary Admission: No Attestations NPU 2 Medical Necessity Statement*: Inpatient hospitalization is medically necessary and the clinically appropriate intervention, at this time. We will monitor medications and make changes as indicated. Likely length of stay is 1-3 days. Coding Level of Care Code Acute Code for Chg Fwd Diagnoses Major depressive disorder, recurrent F33.9 Parent-child relational problem Z62.820 Methamphetamine use disorder, severe, in sustained remission F15.21 Generalized anxiety disorder F41.1 Suicidal ideation R45.851 Alcohol use disorder, severe, in sustained remission F10.21 Withdrawal from methamphetamine F15.93
[2023-09-26] MEDS: trazodone 50 mg Tablet PO (20:18)
[2023-09-26] MEDS: quetiapine 100 mg Tablet PO (20:19)
[2023-09-26 20:48] VITALS: BP 114/59; PULSE 81; RESP 18; TEMP 36.4; O2SAT 95
[2023-09-27 06:00] VITALS: BP 96/56; PULSE 65; RESP 17; TEMP 36.6; O2SAT 98
[2023-09-27] MEDS: quetiapine XR (24HR) 50 mg Tablet PO (08:24)
[2023-09-27] MEDS: BuSPIRONE 10 mg Tablet 15 MG PO (08:24)
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
[2023-09-27 12:28] VITALS: BP 96/56; PULSE 65; RESP 17; TEMP 36.6; O2SAT 98
== END 2023-09-27 13:01 | DRG 885 ==
LOC: ER 06:17 → NP 14:44
PROVIDERS: Emergency Medicine; Admitting Provider Psychiatry & Neurology Psychiatry; Emergency Provider Family Medicine; PCP Family Medicine; Visit Provider Psychiatry & Neurology Psychiatry
DX: F33.9 Major depressive disorder, recurrent, unspecified (principal); R45.851 Suicidal ideations; F15.93 Other stimulant use, unspecified with withdrawal; F41.1 Generalized anxiety disorder; F10.91 Alcohol use, unspecified, in remission; F17.210 Nicotine dependence, cigarettes, uncomplicated; Z65.8 Other specified problems related to psychosocial circumstances
CPT/HCPCS: 71045; 80053; 80306; 80307; 81001; 81025; 85025; 87635; 97150; 97165; 99285; Q0162

== ENCOUNTER → 2023-10-17 11:48 | Outpatient (BNVA) | payer MEDICARE, MEDICAID, SELFPAY | PROVIDERS: PCP Family Medicine; Visit Provider Surgery | DX: Z12.11 Encounter for screening for malignant neoplasm of colon (principal) | CPT/HCPCS: 99024; 99203 ==

== ENCOUNTER 2023-11-06 10:14 | Outpatient (CLI) | payer MEDICARE, MEDICAID, SELFPAY ==
--- NOTE | 2023-11-06 10:20 | MM_ITS ---
WS: [id number] BILATERAL SCREENING DIGITAL TOMOSYNTHESIS MAMMOGRAM WITH CAD HISTORY: SCREENING COMPARISON: 05/29/2018 Bilateral CC and MLO views with tomosynthesis and synthetic mammography submitted. Computer aided det ection analyzed. Breast composition: There are scattered areas of fibroglandular density. No suspicious masses, microc alcifications or architectural distortion. Benign calcification RIGHT breast. IMPRESSION: MM/[place] [id number] BI-RADS: 2-Benign FOLLOW UP: 1 Year Follow-up
== END 2023-11-06 10:15 | disposition home or self-care (01) ==
LOC: RAD 10:14
PROVIDERS: PCP Family Medicine; Visit Provider Advanced Practice Midwife
DX: Z12.31 Encounter for screening mammogram for malignant neoplasm of breast (principal)
CPT/HCPCS: 77063; 77067

== ENCOUNTER → 2025-07-30 14:35 | Outpatient (BNVA) | payer MEDICARE, MEDICAID, SELFPAY | PROVIDERS: PCP Family Medicine; Visit Provider Nurse Practitioner | DX: R07.89 Other chest pain (principal) | CPT/HCPCS: 71046 ==